=== PATIENT | female | born 1980 | race African-American/Black ===

== ENCOUNTER 2023-05-22 20:21 | Emergency (ER) | payer SELFPAY ==
[~2023-05-22] VITALS: Ht 162.6 cm; Wt 120.0 kg
[2023-05-22 20:42] VITALS: BP 155/96
[2023-05-22 21:55] LABS: Basophils # (auto) 0.1 10 ^3/uL (0-0.2); Basophils % (auto) 0.6 % (0.0-2.0); Eosinophils # (auto) 0.1 10 ^3/uL (0-0.8); Eosinophils % (auto) 0.9 % (0.0-7.0); Hematocrit 38.5 % (36.0-46.0); Hemoglobin 12.6 g/dL (12.2-16.2); Lymphocytes # (auto) 3.4 10 ^3/uL (0.4-5.4); Lymphocytes % (auto) 23.7 % (10.0-50.0); Mean Corpuscular Hgb Conc. 32.8 g/dL (32.0-36.0); Mean Corpuscular Volume 91.6 fL (80.0-100.0); Monocytes # (auto) 0.6 10 ^3/uL (0-1.3); Monocytes % (auto) 4.3 % (0.0-12.0); Neutrophils # (auto) 10.1 10 ^3/uL (1.6-8.6); Neutrophils % (auto) 70.5 % (37.0-80.0); Red Blood Cells 4.21 10^6/uL (4.0-5.20); Red Cell Distribution Width 14.8 % (11.8-14.3); White Blood Cell 14.4 10^3/uL (4.4-10.8)
[2023-05-22 21:57] LABS: Albumin 3.6 g/dL (3.4-5.0); Anion Gap 8 (5-15); Blood Urea Nitrogen 11 mg/dL (7-18); Calcium 8.6 mg/dL (8.5-10.1); Carbon Dioxide 22 mmol/L (21-32); Chloride 112 mmol/L (98-107); Glucose 104 mg/dL (74-106); Potassium 3.8 mmol/L (3.5-5.1); Sodium 142 mmol/L (136-145)
[2023-05-22 22:00] LABS: Alanine Aminotransferase 19 U/L (13-56); Alkaline Phosphatase 73 U/L (45-117); Aspartate Aminotransferase 10 U/L (15-37); Bilirubin, Total < 0.1 mg/dL (0.2-1.0); GFR African American 78 mL/min; GFR Non-African American 65 mL/min; Total Protein 7.8 g/dL (6.4-8.2)
[2023-05-22 22:17] LABS: INR 0.96 (0.9-1.15)
[2023-05-23] MEDS ORDERED: cefTRIAXone SOD 1,000 MG VL IM ONE (02:15)
[2023-05-23] MEDS ORDERED: TETANUS-DIPTH-ACEL PERTUSSIS 0.5ML SYR Tdap IM ONE (02:15)
[2023-05-23] MEDS ORDERED: IBUP1TAB5 PO (02:15)
[2023-05-23] MEDS ORDERED: ACET-1304 PO (02:15)
== END 2023-05-23 03:20 | disposition home or self-care (01) ==
LOC: ER 20:21 → EDBD 20:21 → ER 05-23 03:20
DX: S01.81XA Laceration without foreign body of other part of head, initial encounter (principal); S06.0X0A Concussion without loss of consciousness, initial encounter; R10.2 Pelvic and perineal pain; W22.8XXA Striking against or struck by other objects, initial encounter; Y93.89 Activity, other specified; Y92.89 Other specified places as the place of occurrence of the external cause; Y99.8 Other external cause status
CPT/HCPCS: 36415; 70450; 71045; 72125; 73030; 80053; 84702; 85025; 85610; 85730